=== PATIENT | male | born 1955 | race African-American/Black ===

== ENCOUNTER 2022-08-06 15:23 | Emergency (ER) | payer OTHER, SELFPAY ==
[2022-08-06 16:15] LABS: #Eosinphils 0.1 thou/uL (0.0-0.7); #Lymphocytes 1.4 thou/uL (1.20-3.40); #Monocytes 0.5 thou/uL (0.11-0.59); #Neutrophils 2.6 thou/uL (1.40-6.50); %Eosinophils 2.6 % (0.0-10.0); %Lymphocytes 29.9 % (21.0-51.0); %Monocytes 10.2 % (0.0-10.0); %Neutrophils 57.2 % (42.0-75.0); Hemoglobin 15.5 g/dL (14.0-18.0); Mean Corpuscular HGB CONC 30.2 g/dL (32.0-36.0); Mean Corpuscular Hemoglobin 27.9 pg (27.0-31.0); Mean Corpuscular Volume 92.3 fL (78.0-98.0); Mean Platelet Volume 9.7 fL (7.4-10.4); Platelet Count 187 thou/uL (130-400); RBC Distribution Width 13.6 % (11.5-14.5); Red Blood Cell (RBC) Count 5.56 mill/uL (4.70-6.10); White Blood Cell (WBC) Count 4.5 thou/uL (4.8-10.8)
[2022-08-06 16:35] LABS: ALT (SGPT) 13 U/L (8-55); AST (SGOT) 17 U/L (5-34); Albumin 3.7 g/dL (3.4-4.8); Alkaline Phosphatase 60 U/L (40-110); Anion Gap 12 mmol/L (10-20); BUN (Urea Nitrogen) 21 mg/dL (8.4-25.7); Bilirubin, Total 0.7 mg/dL (0.2-1.2); CK (CPK) 217 U/L (30-200); Calc. Creatinine Clearance 0 mL/min (70-130); Calcium 10.5 mg/dL (7.8-10.44); Carbon Dioxide 24 mmol/L (23-31); Chloride 107 mmol/L (98-107); Estimated GFR 50; Globulin 4.1 g/dL (2.4-3.5); Glucose 99 mg/dL (80-115); Potassium 3.5 mmol/L (3.5-5.1); Protein, Total 7.8 g/dL (5.8-8.1); Sodium 139 mmol/L (136-145)
[2022-08-06 16:55] LABS: CKMB 3.5 ng/mL (0-6.6)
[2022-08-06 18:00] LABS: Bacteria/HPF None Seen HPF (None Seen); Bilirubin Negative (Negative); Blood, Urine Negative (Negative); Clarity Clear (Clear); Glucose, Urine (Dipstick) Normal (Negative); Ketone, Urine Negative (Negative); Leukocyte Negative Leu/uL (Negative); Nitrite Negative (Negative); Protein, Urine (Dipstick) 100 mg/dL (Neg-Trace); RBC/HPF None Seen HPF (0-3); Specific Gravity, Urine 1.028 (1.002-1.036); Squamous Epithelial 0-3 HPF (0-3); Urobilinogen Normal mg/dL (Less than 2); WBC/HPF 0-3 HPF (0-3)
== END 2022-08-06 19:45 | disposition home or self-care (01) ==
LOC: ERS 15:23
DX: R52 Pain, unspecified (principal); R53.83 Other fatigue; I10 Essential (primary) hypertension; E11.9 Type 2 diabetes mellitus without complications; Z86.73 Personal history of transient ischemic attack (TIA), and cerebral infarction without residual deficits
CPT/HCPCS: 36415; 71045; 80053; 81003; 81015; 82550; 82553; 84484; 85025; 93005